=== PATIENT | female | born 1955 ===

== ENCOUNTER 2024-08-13 09:15 | Outpatient (RCR) | payer MEDICARE, BC, SELFPAY | END 2024-10-07 17:41 | disposition home or self-care (01) | PROVIDERS: PCP Family Medicine; Visit Provider Family Medicine | DX: M25.511 Pain in right shoulder (principal); M25.562 Pain in left knee; Z51.89 Encounter for other specified aftercare | CPT/HCPCS: 97110; 97140; 97161; 97164 ==